=== PATIENT | male | born 1960 | race Asian ===

== ENCOUNTER 2025-01-12 12:11 | Inpatient (IN) | payer MEDICAID, OTHER ==
[~2025-01-12] VITALS: Ht 162.6 cm; Wt 64.2 kg
[~2025-01-12 12:11] MED LIST: ENAL1TAB42; METF-370
--- NOTE | 2025-01-12 13:14 | ED.PDOC ---
History of Present Illness HPI Comments 64 year old male with PMHx DM, HTN, HLD, CKF presents to the ED with a chief complaint of abnormal labs onset today. Patient states he just moved from [place], began dialysis on 10/28/24, last dialysis was 2 days ago, has dialysis Sunday, Sunday, Sunday. Patient has no PCP, needs to set up dialysis. Has no further complaints. Denies fever, chills, nausea, vomiting, diarrhea, abdominal pain, chest pain, shortness of breath, numbness/tingling, headache, dysuria, hematuria. No other symptoms or modifying factors present at this time. Chief Complaint: Abnormal LAB's Time Seen by MD: 13:05 Primary Care Provider: NONE Reviewed Notes: Nurses Notes, Medications, Allergies Allergies: Coded Allergies: NO KNOWN ALLERGIES (Unverified , 01/18/11) Home Meds Reported Medications Rosuvastatin Calcium (Rosuvastatin Calcium) 5 Mg Tab, 5 MG PO DAILY, TAB 01/12/25 Calcium Acetate (Phosphate Bin (Calcium Acetate) 667 Mg Cap, 667 MG PO TIDWM, CAP WITH MEALS 01/12/25 Ferrous Sulfate (Ferrous Sulfate) 325 Mg Tab, 325 MG PO BID, TAB 01/12/25 Calcitriol (Calcitriol) 0.25 Mcg Cap, 1 CAP PO DAILY, #30 CAP 5 Refills 01/12/25 Allopurinol (Allopurinol) 100 Mg Tab, 100 MG PO DAILY, TAB 01/12/25 Furosemide (Furosemide) 40 Mg Tab, 1 TAB PO DAILY, #30 TAB 5 Refills 01/12/25 Metformin Hydrochloride (Metformin Hcl) 500 Mg Tab, BID 01/18/11 Enalapril Maleate (Enalapril Maleate) 2.5 Mg Tab, DAILY 01/18/11 Information Source: Patient, Relative Mode of Arrival: Ambulatory Severity: Moderate Timing: Hours Duration: Since onset Prehospital treatment: None Past Medical History PAST MEDICAL HISTORY: CKF, DM, High Lipids, HTN Surgical History: Denies all surgeries Family History Family History: Unknown Social History Smoker: Non-Smoker Alcohol: Denies ETOH Use Drugs: Denies Drug Use Lives In: Home Constitutional: denies: chills, diaphoresis, fatigue, fever, malaise, sweats, weakness, others EENTM: denies: blurred vision, double vision, ear bleeding, ear discharge, ear drainage, ear pain, ear ringing, eye pain, eye redness, hearing loss, mouth pain, mouth swelling, nasal discharge, nose bleeding, nose congestion, nose pain, photophobia, tearing, throat pain, throat swelling, voice changes, others Respiratory: denies: cough, hemoptysis, orthopnea, SOB at rest, shortness of breath, SOB with excertion, stridor, wheezing, others Cardiovascular: denies: chest pain, dizzy spells, diaphoresis, Dyspnea on exertion, edema, irregular heart beat, left arm pain, lightheadedness, palpitations, PND, syncope, others Gastrointestinal: denies: abdomen distended, abdominal pain, blood streaked bowels, constipated, diarrhea, dysphagia, difficulty swallowing, hematemesis, melena, nausea, poor appetite, poor fluid intake, rectal bleeding, rectal pain, vomiting, others Genitourinary: denies: burning, dysuria, flank pain, frequency, hematuria, incontinence, penile discharge, penile sore, pain, testicle pain, testicle swelling, urgency, others Neurological: denies: dizziness, fainting, headache, left sided numbness, left sided weakness, numbness, paresthesia, pre-existing deficit, right sided numbness, right sided weakness, seizure, speech problems, tingling, tremors, weakness, others Musculoskeletal: denies: back pain, gout, joint pain, joint swelling, muscle pain, muscle stiffness, neck pain, others Integumetry: denies: bruises, change in color, change in hair/nails, dryness, laceration, lesions, lumps, rash, wounds, others Allergic/Immunocompromised: denies: Difficulty Healing, Frequent Infections, Hives, Itching, others Hematologic/Lymphatic: denies: anemia, blood clots, easy bleeding, easy bruising, swollen glands, others Endocrine: denies: excessive hunger, excessive sweating, excessive thirst, excessive urination, flushing, intolerance to cold, intolerance to heat, unexp lained weight gain, unexplained weight loss, others Psychiatric: denies: anxiety, bipolar disorder, depression, hopeless, panic disorder, schizophrenia, sleepless, suicidal, others All Other Systems: Reviewed and Negative Physical Exam General Appearance: Normal HEENT: Normal ENT Inspection, Pharynx Normal, TMs Normal Neck: Full Range of Motion, Non-Tender, Normal, Normal Inspection Respiratory: Chest Non-Tender, Lungs Clear, No Accessory Muscle Use, No Respiratory Distress, Normal Breath Sounds Cardiovascular: No Edema, No JVD, No Murmur, No Gallop, Normal Peripheral Pulses, Regular Rate/Rhythm Breast Exam: Deferred Gastrointestinal: No Organomegaly, Non Tender, No Pulsatile Mass, Normal Bowel Sounds, Soft Genitalia: Deferred Pelvic: Deferred Rectal: Deferred Extremities: No calf tenderness, Normal capillary refill, Normal inspection, Normal range of motion, Non-tender, No pedal edema Musculoskeletal : Apperance: Normal Neurologic: Alert, 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 Was a procedure done?: No Differential Dx Considerations may include: Hyperkalemia, metabolic acidosis, volume overload, uremia, chronic renal failure. X-Ray, Labs, Meds, VS Vital Signs Date Time Temp Pulse Resp B/P (MAP) Pulse Ox O2 Delivery O2 Flow Rate FiO2 01/12/25 14:07 97.9 82 17 155/94 (114) 97 97.9 01/12/25 12:15 98.7 92 17 162/94 97 98.7 Lab Test 01/12/25 13:05 Range/Units White Blood Count 6.1 4.4-10.8 10^3/uL Red Blood Count 4.09 L 4.5-5.90 10^6/uL Hemoglobin 13.1 L 13.5-17.5 g/dL Hematocrit 38.6 L 41.0-53.0 % Mean Corpuscular Volume 94.4 80.0-100.0 fL Mean Corpuscular Hemoglobin 32.0 28.0-32.0 pg Mean Corpuscular Hemoglobin Concent 33.9 32.0-36.0 g/dL Red Cell Distribution Width 14.2 11.8-14.3 % Platelet Count 194 140-450 10^3/uL Mean Platelet Volume 7.5 6.9-10.8 fL Neutrophils (%) (Auto) 72.9 37.0-80.0 % Lymphocytes (%) (Auto) 15.2 10.0-50.0 % Monocytes (%) (Auto) 7.5 0.0-12.0 % Eosinophils (%) (Auto) 3.7 0.0-7.0 % Basophils (%) (Auto) 0.7 0.0-2.0 % Neutrophils # (Auto) 4.5 1.6-8.6 10 ^3/uL Lymphocytes # (Auto) 0.9 0.4-5.4 10 ^3/uL Monocytes # (Auto) 0.5 0-1.3 10 ^3/uL Eosinophils # (Auto) 0.2 0-0.8 10 ^3/uL Basophils # (Auto) 0 0-0.2 10 ^3/uL Nucleated Red Blood Cells 0.0 % Sodium Level 142 136-145 mmol/L Potassium Level 4.5 3.5-5.1 mmol/L Chloride Level 104 98-107 mmol/L Carbon Dioxide Level 23 20-31 mmol/L Anion Gap 15 5-15 Blood Urea Nitrogen 79 H 9-23 mg/dL Creatinine 10.60 *H 0.700-1.30 mg/dL Glomerular Filtration Rate Calc 5 >90 mL/min BUN/Creatinine Ratio 7.5 L 10.0-20.0 Serum Glucose 130 H 74-106 mg/dL Calcium Level 9.7 8.7-10.4 mg/dL Time of 1ST Reevaluation: 13:35 Reevaluation 1ST: Unchanged Patient Education/Counseling: Diagnosis, Treatment, Prognosis Family Education/Counseling: Diagnosis, Treatment, Prognosis Comments This is a patient with chronic renal failure on hemodialysis. [facility] just [facility] and is looking for dialysis. He had gotten dialysis on Sunday. Current lab does not show any evidence of needing emergency dialysis. Patient presents in no distress. I will consult hospitalist to see dictation needs to be admitted for arrangement of nephrologists or outpatient arrangements can be made. Additional Information The following tests were ordered, and results were reviewed by me: BMP, CBC Additional Information was gathered from interviewing the following independent historians: relative I discussed treatment and results with medical personnel and: patient and relative Comprehensive systems review obtained and negative except for what is stated in the HPI. SEPSIS Sepsis Screen Date sepsis recognized/suspect: Jan 12, 2025 Time Sepsis recognized/suspect: 8 Recent Procedure: No On Antibiotic Therapy: No Respiratory Rate >20: No Heart Rate >90: No Temp<36 C (96.8 F) or >38.3 C: No SBP <90 or MAP <65 mmHG: No New Acute Mental Status Change: No Is the patient on CPAP, BIPAP,: No Vital Signs Date Time Temp Pulse Resp B/P (MAP) Pulse Ox O2 Delivery O2 Flow Rate FiO2 01/12/25 14:07 97.9 82 17 155/94 (114) 97 97.9 01/12/25 12:15 98.7 92 17 162/94 97 98.7 Laboratory Tests Test 01/12/25 13:05 White Blood Count 6.1 10^3/uL (4.4-10.8) Departure 1 Departure Impression: Primary Impression: ESRD (end stage renal disease) Additional Impression: Chronic kidney disease Disposition: ADMITTED INPATIENT Admit to: Med Surg Condition: Stable Discharged With: Self, Relative Critical Care Note Critical Care Time?: No Stability Stability form required: No Heart Score Heart Score: Heart Score Response (Comments) Value History N/A 0 EKG N/A 0 Age N/A 0 Risk Factors N/A 0 Troponin N/A 0 Total 0 I personally scribed for ANLAY SALAZAR MD ([email or web address]) on 01/12/25 at 13:14. Electronically submitted by Lillie Barnard ([email or web address]). ANALY SALAZAR MD Jan 12, 2025 13:14
[2025-01-12 13:18] LABS: Hematocrit 38.6 % (41.0-53.0); Hemoglobin 13.1 g/dL (13.5-17.5); Mean Corpuscular Hemoglobin 32.0 pg (28.0-32.0); Mean Corpuscular Volume 94.4 fL (80.0-100.0); Nucleated Red Blood Cells % 0.0 %
[2025-01-12 13:24] LABS: Chloride 104 mmol/L (98-107); Potassium 4.5 mmol/L (3.5-5.1); Sodium 142 mmol/L (136-145)
[2025-01-12 13:25] LABS: Anion Gap 15 (5-15); Calcium 9.7 mg/dL (8.7-10.4); Carbon Dioxide 23 mmol/L (20-31)
[2025-01-12 13:30] LABS: BUN/Creatinine Ratio 7.5 (10.0-20.0)
[2025-01-12 13:31] LABS: Blood Urea Nitrogen 79 mg/dL (9-23); Glucose 130 mg/dL (74-106)
[2025-01-12] MEDS ORDERED: DOCUSATE SOD 100 MG CAP PO PRN (16:15)
[2025-01-12] MEDS ORDERED: HYDROcodone-ACET 5/325MG TAB PO PRN (16:15)
[2025-01-12] MEDS ORDERED: ACETAMINOPHEN 325 MG TAB PO PRN (16:15)
[2025-01-12] MEDS ORDERED: ONDANSETRON HCL 4 MG/2 ML VIAL IV PRN (16:15)
[2025-01-12] MEDS ORDERED: DEXTROSE (50%) 50ML SYRG IV PRN (16:30)
[2025-01-12] MEDS ORDERED: CALC0.25 PO (16:48)
[2025-01-12] MEDS ORDERED: CALC667C PO (16:48)
[2025-01-12] MEDS ORDERED: FURO40TA4 PO (16:48)
[2025-01-12] MEDS ORDERED: FER325T PO (16:48)
[2025-01-12] MEDS ORDERED: ROSU5TAB24 PO (16:48)
[2025-01-12] MEDS ORDERED: ALLO100T PO (16:48)
--- NOTE | 2025-01-12 16:57 | DVHHP2 ---
History of Present Illness Reason for Visit: Needs hemodialysis History of Present Illness Inder Noyola is a 64-year-old male with past medical history of ESRD on HD, hard of hearing, hypertension, GOUT, and diabetes, who came to the hospital due to needing hemodialysis. Patient just arrived in the [place] today [place]. He states he has been on hemodialysis since October of 2024. He tried arranging chair time prior to arrival but there was a languae barrier. So when he showed up today he was told to go to the ER. His last HD was Sunday01/09/2025. 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 Cardiovascular: HTN, hyperipidemia Rheumatologic: Gout Renal/: Chronic renal failure (on HD) Endocrine: Diabetes Smoke: No ALCOHOL: none Drugs: None Lives: with Family Domestic Violence: Neg Review of Systems Constitutional: No: Fever, Chills, Sweats, Weakness, Malaise, Other Eyes: No: Pain, Vision change, Conjunctivae inflammation, Eyelid inflammation, Other, Redness ENT: No: Ear pain, Ear discharge, Nose pain, Nose discharge, Nose congestion, Mouth pain, Mouth swelling, Throat pain, Throat swelling, Other Respiratory: No: Cough, Dry, Shortness of breath, SOB with excertion, Wheezing, Hemoptysis, Pleuritic Pain, Sputum, Wheezing, Other Cardiovascular: No: Chest Pain, Palpitations, Orthopnea, Paroxysmal Noc. Dyspnea, Edema, Lt Headedness, Other Gastrointestinal: No: Nausea, Vomiting, Abdominal Pain, Diarrhea, Constipation, Melena, Hematochezia, Other Genitourinary: No Dysuria, No Frequency, No Incontinence, No Hematuria, No Retention, No Other Musculoskeletal: No: other, neck pain, shoulder pain, arm pain, back pain, hand pain, leg pain, foot pain Skin: No: Rash, Lesions, Jaundice, Bruising, Other Neurological: No: Weakness, Numbness, Incoordination, Change in speech, Confusion, Seizures, Other Other Needs hemodialysis Allergies: Coded Allergies: NO KNOWN ALLERGIES (Unverified , 01/18/11) Exam Vital Signs Vital Signs Date Time Temp Pulse Resp B/P (MAP) Pulse Ox O2 Delivery O2 Flow Rate FiO2 01/12/25 14:07 97.9 82 17 155/94 (114) 97 97.9 General Appearance: Alert, Oriented X3, Cooperative, No acute distress HEENT: Atraumatic, PERRLA, Mucous membr. moist/pink Respiratory: Clear to auscultation, Normal air movement Cardiovascular: Regular rate, Normal S1, Normal S2, No murmurs Abdominal: Normal bowel sounds, Soft, No tenderness, No hepatospenomegaly Extremities: No clubbing, No cyanosis, No edema, Normal pulses, Other (left arm HD fistula) Skin: No rashes, No breakdown, No significant lesion Neuro: Normal gait, Normal speech, Strength at 5/5 X4 ext Psych/Mental Status: Mental status NL, Mood NL Labs/Xrays Labs Test 01/12/25 13:05 Range/Units White Blood Count 6.1 4.4-10.8 10^3/uL Red Blood Count 4.09 L 4.5-5.90 10^6/uL Hemoglobin 13.1 L 13.5-17.5 g/dL Hematocrit 38.6 L 41.0-53.0 % Mean Corpuscular Volume 94.4 80.0-100.0 fL Mean Corpuscular Hemoglobin 32.0 28.0-32.0 pg Mean Corpuscular Hemoglobin Concent 33.9 32.0-36.0 g/dL Red Cell Distribution Width 14.2 11.8-14.3 % Platelet Count 194 140-450 10^3/uL Mean Platelet Volume 7.5 6.9-10.8 fL Neutrophils (%) (Auto) 72.9 37.0-80.0 % Lymphocytes (%) (Auto) 15.2 10.0-50.0 % Monocytes (%) (Auto) 7.5 0.0-12.0 % Eosinophils (%) (Auto) 3.7 0.0-7.0 % Basophils (%) (Auto) 0.7 0.0-2.0 % Neutrophils # (Auto) 4.5 1.6-8.6 10 ^3/uL Lymphocytes # (Auto) 0.9 0.4-5.4 10 ^3/uL Monocytes # (Auto) 0.5 0-1.3 10 ^3/uL Eosinophils # (Auto) 0.2 0-0.8 10 ^3/uL Basophils # (Auto) 0 0-0.2 10 ^3/uL Nucleated Red Blood Cells 0.0 % Sodium Level 142 136-145 mmol/L Potassium Level 4.5 3.5-5.1 mmol/L Chloride Level 104 98-107 mmol/L Carbon Dioxide Level 23 20-31 mmol/L Anion Gap 15 5-15 Blood Urea Nitrogen 79 H 9-23 mg/dL Creatinine 10.60 *H 0.700-1.30 mg/dL Glomerular Filtration Rate Calc 5 >90 mL/min BUN/Creatinine Ratio 7.5 L 10.0-20.0 Serum Glucose 130 H 74-106 mg/dL Calcium Level 9.7 8.7-10.4 mg/dL SEPSIS Sepsis Screen Date sepsis recognized/suspect: Jan 12, 2025 Time Sepsis recognized/suspect: 1217 Recent Procedure: No On Antibiotic Therapy: No Respiratory Rate >20: No Heart Rate >90: No Temp<36 C (96.8 F) or >38.3 C: No SBP <90 or MAP <65 mmHG: No New Acute Mental Status Change: No Is the patient on CPAP, BIPAP,: No Physician Orders Admit (01/12/25 16:12) Code Status (01/12/25 16:12) Renal Standard(2gna,3gk,Lopho) (01/12/25 Dinner) Sodium Chloride Lock (Saline Lock Ns) (01/12/25 22:00) Hydrocodone-Acet 5/325mg Tab (Mona 32 (01/12/25 16:15) Ondansetron Hcl (Zofran) (01/12/25 16:15) Docusate Sodium Capsule (Colace Capsule) (01/12/25 16:15) Complete Blood Count (01/13/25 04:00) Comprehensive Metabolic Panel (01/13/25 04:00) Condition: Serious (01/12/25 16:12) Acetaminophen Tablet (Tylenol Tablet) (01/12/25 16:15) *[facility] (01/12/25 16:12) Vital Signs Date Time Temp Pulse Resp B/P (MAP) Pulse Ox O2 Delivery O2 Flow Rate FiO2 01/12/25 14:07 97.9 82 17 155/94 (114) 97 97.9 01/12/25 12:15 98.7 92 17 162/94 97 98.7 Laboratory Tests Test 01/12/25 13:05 White Blood Count 6.1 10^3/uL (4.4-10.8) Assessment/Plan Assessment/Plan Assessment: ESRD needing dialysis, Diabetes, Hypertension, Hyperlipidemia, Plan: Admit to Med-Surg, Nephrology consult, Chest X-ray, Daily weight, Fluid restriction, Will require a social service consult to help arrange chair time, Accu checks Q AC&HS with sliding scale, Home medications reconciled, Plan discussed with: Patient, Spouse My Orders Orders - GINA MONTAGUE Procedure Category Date Status Time Admit ADMIT 01/12/25 Transmitted 16:12 Code Status CODE 01/12/25 Transmitted 16:12 Renal DIET 01/12/25 Transmitted Standard(2gna,3gk,Lopho) Dinner Sodium Chloride Lock PHA 01/12/25 Transmitted (Saline Lock Ns) 22:00 Hydrocodone-Acet PHA 01/12/25 Transmitted 5/325mg Tab (Mona 16:15 Ondansetron Hcl PHA 01/12/25 Transmitted (Zofran) 16:15 Docusate Sodium PHA 01/12/25 Transmitted Capsule (Colace 16:15 Complete Blood Count LAB 01/13/25 Verified 04:00 Comprehensive LAB 01/13/25 Verified Metabolic Panel 04:00 Condition: Serious EDWIN 01/12/25 Transmitted 16:12 Acetaminophen Tablet PHA 01/12/25 Transmitted (Tylenol Tablet) 16:15 *Dr. [facility] CONS 01/12/25 Transmitted -[place] 16:12 Date of Service: Jan 12, 2025 Billing Provider: GINA MONTAGUE Common Visit Codes: 66728-GHEIAYP INP/OBS CARE (MOD) GINA MONTAGUE Jan 12, 2025 16:57
[2025-01-12] MEDS: ACCU-CHEK COMFORT CURVE STRIP VI SCH (17:00)
[2025-01-12] MEDS: InsuLIN REG 1unit/0.01ml Soln (100units/ml) SC SCH ×2 (17:00→22:00)
[2025-01-12 17:30] VITALS: PULSE 84; RESP 16; O2SAT 100
[2025-01-12] MEDS: CALCIUM ACETATE 667 MG CAP PO SCH (18:28)
--- NOTE | 2025-01-12 18:49 | DVH ---
CHEST RADIOGRAPH Indication: short of breath Technique: Single frontal view of the chest was obtained Comparison: None FINDINGS: Lines and Tubes: None Lungs: No focal consolidation. Pleura: No effusion. No pneumothorax. Cardiomediastinal contours: Unremarkable Bones: No acute osseous abnormality. IMPRESSION: 1. No acute cardiopulmonary disease.
[2025-01-12 20:59] LABS: Urine Protein, UAD 2+ (Negative)
[2025-01-12 22:10] VITALS: BP 181/91; PULSE 87; RESP 18; TEMP 98.2; O2SAT 95
[2025-01-13] VITALS (7 sets, daily range): BP systolic 100–155; BP diastolic 53–83; PULSE 75–89; RESP 17–20; TEMP 97.3–97.7; O2SAT 98–100
[2025-01-13] MEDS: FERROUS SULFATE 325mg EC TAB PO SCH (00:14)
[2025-01-13 06:08] LABS: Hematocrit 39.6 % (41.0-53.0); Hemoglobin 13.4 g/dL (13.5-17.5); Mean Corpuscular Hemoglobin 31.8 pg (28.0-32.0); Mean Corpuscular Volume 93.7 fL (80.0-100.0); Nucleated Red Blood Cells % 0.1 %
[2025-01-13 06:29] LABS: Alanine Aminotransferase 11 U/L (7-40); Albumin 3.6 g/dL (3.2-4.8); Anion Gap 17 (5-15); BUN/Creatinine Ratio 8.3 (10.0-20.0); Calcium 9.5 mg/dL (8.7-10.4); Carbon Dioxide 20 mmol/L (20-31); Chloride 105 mmol/L (98-107); Glucose 80 mg/dL (74-106); Potassium 4.5 mmol/L (3.5-5.1); Sodium 142 mmol/L (136-145); Total Protein 6.5 g/dL (5.7-8.2)
[2025-01-13 06:30] LABS: Bilirubin, Total 0.4 mg/dL (0.2-1.0)
[2025-01-13 06:44] LABS: Alkaline Phosphatase 118 U/L (46-116)
[2025-01-13 06:47] LABS: Blood Urea Nitrogen 86 mg/dL (9-23)
[2025-01-13] MEDS: FUROSEMIDE 40 MG TAB PO SCH (10:00)
[2025-01-13] MEDS: ENALAPRIL MALEATE 2.5 MG TAB PO SCH (10:00)
[2025-01-13 10:35] LABS: Uric Acid 6.9 mg/dL (3.7-9.2)
[2025-01-13] MEDS: CALCITRIOL 0.25 MCG CAP PO SCH (10:40)
[2025-01-13] MEDS: ALLOPURINOL 100 MG TAB PO SCH (10:40)
--- NOTE | 2025-01-13 13:51 | DVHCONRES ---
Date Seen: Jan 13, 2025 Resident Creating Document: ZACHARY SOL RESIDENT Referring Physician Dr Zuniga Reason for Consultation ESRD on HD History of Present Illness Inder Noyola is a 64-year-old male with past medical history of ESRD on HD, hard of hearing, hypertension, GOUT, and diabetes, who came to the hospital due to needing hemodialysis. Patient just arrived [place] the [place] today from [facility]. He states he has been on hemodialysis since October of 2024. He tried arranging chair time prior to arrival but there was a languae barrier. So when he showed up today he was told to go to the ER. His last HD was Sunday01/09/2025. He has not established a primary care provider, curator of education, or dialysis center yet. Nephrology was consulted for hemodialysis PMH: HTN, hyperlipidemia, gout, ESRD on HD, type 2 DM PSH: Denies Family history: Nonsignificant Personal history: Lives at home. Denies smoking, alcohol or drug abuse Allergies: No known allergies Patient seen and examined at the bedside. Patient is alert and able to answer all questions. Patient denied any symptoms at this time. Continuously monitoring lab. Allergies: Coded Allergies: NO KNOWN ALLERGIES (Unverified , 01/18/11) Home Meds Reported Medications Rosuvastatin Calcium (Rosuvastatin Calcium) 5 Mg Tab, 5 MG PO DAILY, TAB 01/12/25 Calcium Acetate (Phosphate Bin (Calcium Acetate) 667 Mg Cap, 667 MG PO TIDWM, CAP WITH MEALS 01/12/25 Ferrous Sulfate (Ferrous Sulfate) 325 Mg Tab, 325 MG PO BID, TAB 01/12/25 Calcitriol (Calcitriol) 0.25 Mcg Cap, 1 CAP PO DAILY, #30 CAP 5 Refills 01/12/25 Allopurinol (Allopurinol) 100 Mg Tab, 100 MG PO DAILY, TAB 01/12/25 Furosemide (Furosemide) 40 Mg Tab, 1 TAB PO DAILY, #30 TAB 5 Refills 01/12/25 Metformin Hydrochloride (Metformin Hcl) 500 Mg Tab, BID 01/18/11 Enalapril Maleate (Enalapril Maleate) 2.5 Mg Tab, DAILY 01/18/11 Current Medications Current Medications Medications (Trade) Dose Ordered Sig/Charley Route PRN Reason Start Time Stop Time Status Last Admin Sodium Chloride (Saline Lock Ns) 10 ml Q8HR IV 01/12/25 22:00 Acetaminophen/ Hydrocodone Bitart (Corinne 5/325MG Tab) 1 tab Q4HP PRN PO MODERATE PAIN (4-6 PAIN SCALE) 01/12/25 16:15 Ondansetron HCl (Zofran) 4 mg Q4HP PRN IV NAUSEA / VOMITING 01/12/25 16:15 Docusate Sodium (Colace Capsule) 100 mg BIDPRN PRN PO FOR CONSTIPATION 01/12/25 16:15 Acetaminophen (Tylenol Tablet) 650 mg Q6HP PRN PO PAIN SCALE 1-3 OR TEMP>100.4 01/12/25 16:15 Diagnostic Test (Pha) (Accu-Chek Comfort Curve T) 1 strip ACHS 01/12/25 17:00 01/13/25 12:18 Insulin Human Regular (InsuLIN R) HS SC 01/12/25 22:00 Insulin Human Regular (InsuLIN R) AC SC 01/12/25 17:00 Dextrose 50 ml UD PRN IV Blood Sugar LESS THAN 60 01/12/25 16:30 Allopurinol (Zyloprim Tablet) 100 mg DAILY PO 01/13/25 10:00 01/13/25 10:40 Calcium Acetate (Phoslo Capsule) 667 mg TIDWM PO 01/12/25 18:00 01/13/25 12:29 Ferrous Sulfate 325 mg BID PO 01/12/25 22:00 01/13/25 10:40 Furosemide (Lasix Tablet) 40 mg DAILY PO 01/13/25 10:00 Atorvastatin Calcium (Lipitor) 10 mg HS PO 01/13/25 22:00 Calcitriol (Rocaltrol Capsule) 0.25 mcg DAILY PO 01/13/25 10:00 01/13/25 10:40 Enalapril Maleate (Vasotec Tablet) 2.5 mg DAILY PO 01/13/25 10:00 Vital Signs Vital Signs Date Time Temp Pulse Resp B/P (MAP) Pulse Ox O2 Delivery O2 Flow Rate FiO2 01/13/25 13:00 97.4 81 20 100/53 (69) 98 97.4 01/13/25 08:00 Room Air* 0 21 Physical Exam General Appearance: Alert, Oriented X3, Cooperative, No acute distress HEENT: Atraumatic, PERRLA, Mucous membr. moist/pink Respiratory: Clear to auscultation, Normal air movement Cardiovascular: Regular rate, Normal S1, Normal S2, No murmurs Abdominal: Normal bowel sounds, Soft, No tenderness, No hepatospenomegaly Extremities: No clubbing, No cyanosis, No edema, Normal pulses, Other (left arm HD fistula) Skin: No rashes, No breakdown, No significant lesion Neuro: Normal gait, Normal speech, Strength at 5/5 X4 ext Psych/Mental Status: Mental status NL, Mood NL Labs/Diagnostic Data Labs Test 01/13/25 12:17 01/13/25 05:40 01/12/25 20:32 Range/Units POC Glucose 124 H 70-106 mg/dl White Blood Count 6.7 4.4-10.8 10^3/uL Red Blood Count 4.22 L 4.5-5.90 10^6/uL Hemoglobin 13.4 L 13.5-17.5 g/dL Hematocrit 39.6 L 41.0-53.0 % Mean Corpuscular Volume 93.7 80.0-100.0 fL Mean Corpuscular Hemoglobin 31.8 28.0-32.0 pg Mean Corpuscular Hemoglobin Concent 33.9 32.0-36.0 g/dL Red Cell Distribution Width 14.4 H 11.8-14.3 % Platelet Count 180 140-450 10^3/uL Mean Platelet Volume 7.8 6.9-10.8 fL Neutrophils (%) (Auto) 72.8 37.0-80.0 % Lymphocytes (%) (Auto) 13.6 10.0-50.0 % Monocytes (%) (Auto) 9.2 0.0-12.0 % Eosinophils (%) (Auto) 3.7 0.0-7.0 % Basophils (%) (Auto) 0.7 0.0-2.0 % Neutrophils # (Auto) 4.9 1.6-8.6 10 ^3/uL Lymphocytes # (Auto) 0.9 0.4-5.4 10 ^3/uL Monocytes # (Auto) 0.6 0-1.3 10 ^3/uL Eosinophils # (Auto) 0.2 0-0.8 10 ^3/uL Basophils # (Auto) 0 0-0.2 10 ^3/uL Nucleated Red Blood Cells 0.1 % Sodium Level 142 136-145 mmol/L Potassium Level 4.5 3.5-5.1 mmol/L Chloride Level 105 98-107 mmol/L Carbon Dioxide Level 20 20-31 mmol/L Anion Gap 17 H 5-15 Blood Urea Nitrogen 86 *H 9-23 mg/dL Creatinine 10.36 *H 0.700-1.30 mg/dL Glomerular Filtration Rate Calc 5 >90 mL/min BUN/Creatinine Ratio 8.3 L 10.0-20.0 Serum Glucose 80 74-106 mg/dL Uric Acid 6.9 3.7-9.2 mg/dL Calcium Level 9.5 8.7-10.4 mg/dL Phosphorus Level 6.4 H 2.4-5.1 mg/dL Total Bilirubin 0.4 0.2-1.0 mg/dL Aspartate Amino Transferase (AST) 33 13-40 U/L Alanine Aminotransferase (ALT) 11 7-40 U/L Alkaline Phosphatase 118 H 46-116 U/L B-Type Natriuretic Peptide 434.99 0-100 pg/mL Total Protein 6.5 5.7-8.2 g/dL Albumin 3.6 3.2-4.8 g/dL Vitamin D 25-Hydroxy 29.3 L 30.0-100 ng/mL Parathyroid Hormone (Intact) 64.6 18.4-80.1 pg/mL Urine Color Light-yellow Yellow Urine Clarity Clear Clear Urine pH 6.5 5.0-9.0 Urine Specific [place] 1.012 1.001-1.035 Urine Protein 2+ H Negative Urine Ketones Negative Negative Urine Blood 2+ H Negative /uL Urine Nitrite Negative Negative Urine Bilirubin Negative Negative Urine Urobilinogen Normal Negative mg/dL Urine Leukocyte Esterase Negative Negative /uL Urine RBC 6 0 - 3 /hpf Urine Microscopic WBC 2 0-3 /HPF Urine Squamous Epithelial Cells None seen <5 /hpf Urine Bacteria None seen None Seen /hpf Urine Glucose 3+ H Normal mg/dL Assessment ESRD on hemodialysis Type 2 DM HTN HLD Hyperphosphatemia Vitamin-D deficiency Plan/recommendations Continue with UF to 3 L as tolerated Blood pressure control Urine studies Monitor lab Check hep B surface antigen Assess fluid status daily Blood pressure management Avoid nephrotoxic agents Social service for outpatient hemodialysis chair time at [facility] dialysis Rest of management as per primary team Patient seen and examined by myself today on rounds with the medicine resident I agree with his assessment and plan Case discussed with Plan discussed with: Patient SWETA,KHAKARL CABAN Jan 13, 2025 13:51 HERRERA DAVEY MD Jan 13, 2025 14:19
--- NOTE | 2025-01-13 15:23 | DVHPN2 ---
Changes from previous H/P or p: No Changes Eyes: No Pain, No Vision change, No Conjunctivae inflammation, No Eyelid inflammation, No Other, No Redness ENT: No Ear pain, No Ear discharge, No Nose pain, No Nose discharge, No Nose congestion, No Mouth pain, No Mouth swelling, No Throat pain, No Throat swelling, No Other Cardiovascular: No Chest Pain, No Palpitations, No Orthopnea, No Paroxysmal Noc. Dyspnea, No Edema, No Lt Headedness, No Other Respiratory: No Cough, No Dry, No Shortness of breath, No SOB with excertion, No Wheezing, No Hemoptysis, No Pleuritic Pain, No Sputum, No Other Gastrointestinal: No Nausea, No Vomiting, No Abdominal Pain, No Diarrhea, No Constipation, No Melena, No Hematochezia, No Other Genitourinary: No Dysuria, No Frequency, No Incontinence, No Hematuria, No Retention, No Other Musculoskeletal: No other, No neck pain, No shoulder pain, No arm pain, No back pain, No hand pain, No leg pain, No foot pain Skin: No Rash, No Lesions, No Jaundice, No Bruising, No Other Objective Vitals Vital Signs Date Time Temp Pulse Resp B/P (MAP) Pulse Ox O2 Delivery O2 Flow Rate FiO2 01/13/25 13:00 97.4 81 20 100/53 (69) 98 97.4 01/13/25 08:00 Room Air* 0 21 Intake/Output Intake and Output 01/13/25 07:00 Intake Total 0 ml Balance 0 ml Intake Oral 0 ml # Voids 2 Medications Current Medications Medications Dose Ordered Sig/Charley Route Start Time Stop Time Status Last Admin Dose Admin Sodium Chloride 10 ml Q8HR IV 01/12/25 22:00 Acetaminophen/ Hydrocodone Bitart 1 tab Q4HP PRN PO 01/12/25 16:15 Ondansetron HCl 4 mg Q4HP PRN IV 01/12/25 16:15 Docusate Sodium 100 mg BIDPRN PRN PO 01/12/25 16:15 Acetaminophen 650 mg Q6HP PRN PO 01/12/25 16:15 Diagnostic Test (Pha) 1 strip ACHS 01/12/25 17:00 01/13/25 12:18 1 STRIP Insulin Human Regular HS SC 01/12/25 22:00 Insulin Human Regular AC SC 01/12/25 17:00 Dextrose 50 ml UD PRN IV 01/12/25 16:30 Allopurinol 100 mg DAILY PO 01/13/25 10:00 01/13/25 10:40 100 MG Calcium Acetate 667 mg TIDWM PO 01/12/25 18:00 01/13/25 12:29 667 MG Ferrous Sulfate 325 mg BID PO 01/12/25 22:00 01/13/25 10:40 325 MG Furosemide 40 mg DAILY PO 01/13/25 10:00 Atorvastatin Calcium 10 mg HS PO 01/13/25 22:00 Calcitriol 0.25 mcg DAILY PO 01/13/25 10:00 01/13/25 10:40 0.25 MCG Enalapril Maleate 2.5 mg DAILY PO 01/13/25 10:00 Laboratory Results Laboratory Tests 01/13/25 05:40 Chemistry Test 01/13/25 05:40 Albumin 3.6 g/dL (3.2-4.8) Calcium Level 9.5 mg/dL (8.7-10.4) Phosphorus Level 6.4 mg/dL (2.4-5.1) H Total Protein 6.5 g/dL (5.7-8.2) Cardiac Markers Test 01/13/25 05:40 B-Type Natriuretic Peptide 434.99 pg/mL (0-100) LFT Test 01/13/25 05:40 Alanine Aminotransferase (ALT) 11 U/L (7-40) Alkaline Phosphatase 118 U/L (46-116) H Aspartate Amino Transferase (AST) 33 U/L (13-40) Total Bilirubin 0.4 mg/dL (0.2-1.0) Urinalysis Test 01/12/25 20:32 Urine Color Light-yellow (Yellow) Urine Clarity Clear (Clear) Urine pH 6.5 (5.0-9.0) Urine Specific [place] 1.012 (1.001-1.035) Urine Protein 2+ (Negative) H Urine Ketones Negative (Negative) Urine Blood 2+ /uL (Negative) H Urine Nitrite Negative (Negative) Urine Bilirubin Negative (Negative) Urine Urobilinogen Normal mg/dL (Negative) Urine Leukocyte Esterase Negative /uL (Negative) Urine RBC 6 /hpf (0 - 3) Urine Microscopic WBC 2 /HPF (0-3) Urine Squamous Epithelial Cells None seen /hpf (<5) Urine Bacteria None seen /hpf (None Seen) Urine Glucose 3+ mg/dL (Normal) H Labs and/or images reviewed: Labs reviewed by me, Image(s) reviewed by me Assessment/Plan Assessment/Plan ESRD on hemodialysis requiring hemodialysis: Nephrology consult by appreciated Type 2 DM HTN HLD Hyperphosphatemia Vitamin-D deficiency Patient arrived in [place] from [place] only yesterday Social service consult placed for dialysis chair time Plan discussed with: Patient Date of Service: Jan 13, 2025 Billing Provider: ABDI NELSON MD Common Visit Codes: [id number] INP/OBS CARE(HIGH) ABDI NELSON MD Jan 13, 2025 15:23
[2025-01-13] MEDS: SODIUM CHLOR 0.9% PF (SALINE LOCK) 10ML VIAL/SYR IV SCH (15:52)
[2025-01-13] MEDS: SODIUM CHL 0.9% 1000 ML BAG XX ONE (15:53)
--- NOTE | 2025-01-13 21:04 | DVHSR ---
APPROVED REPORT EXAM: Two-dimensional and M-mode echocardiogram with Doppler and color Doppler. Blood Pressure: 100/53 mmHg INDICATION Heart Failure RISK FACTORS Height: 5'4", Weight: 136 DIMENSIONS LVDd 5.0 (3.8-5.7cm) LA (2D) 3.7 (1.9-4.0cm) Aortic Root 3.7 (2.0-3.7cm) LVDs 3.1 (2.5-4.0cm) LA (MM) (1.9-4.0cm) Aortic Cusp Exc 2.0 (1.5-2.0cm) EF (%) 68.0 (55-70%) Rt. Atrium 3.5 (1.9-4.0cm) Asc. Aorta 3.4 cm IVSd 1.2 (0.7-1.1cm) RV (D) 4.1 (1.8-2.4cm) PWd 0.9 (0.7-1.1cm) Mitral Valve Mitral Mitral Stenosis E wave 0.56m/s MV Mean GR. mmHg A wave 0.89m/s MV Peak GR. mmHg E/A ratio 0.6 2D MVA cm2 DECEL Time 277ms PRESS 1/2 Time ms Aortic Valve Aortic Valve Aortic Stenosis V1 1.04m/s AO Mean GR. 3mmHg V2 1.27m/s AO Peak GR. 6mmHg LVOT Diameter 2.4 (1.8-2.4cm) Doppler CORBIN 3.70cm2 Pulmonic Valve V2 0.86m/s Conclusion NORMAL LV EF AND IS 70% NORMAL VALVES NO EFFUSION NORMAL RV FUNCTION
[2025-01-13 21:46] LABS: Protein, Urine 165.3 mg/dL (1-14)
[2025-01-13 21:48] LABS: Protein, Urine 170.2 mg/dL (1-14)
[2025-01-13] MEDS: ATORVASTATIN 20 MG TAB PO SCH (21:59)
[2025-01-14] VITALS (8 sets, daily range): BP systolic 82–159; BP diastolic 52–87; PULSE 75–93; RESP 16–20; TEMP 97.4–98.2; O2SAT 94–100
--- NOTE | 2025-01-14 08:34 | DVHPN2 ---
Reviewed: Care Plan Changes from previous H/P or p: No Changes Eyes: No Pain, No Vision change, No Conjunctivae inflammation, No Eyelid inflammation, No Other, No Redness ENT: No Ear pain, No Ear discharge, No Nose pain, No Nose discharge, No Nose congestion, No Mouth pain, No Mouth swelling, No Throat pain, No Throat swelling, No Other Cardiovascular: No Chest Pain, No Palpitations, No Orthopnea, No Paroxysmal Noc. Dyspnea, No Edema, No Lt Headedness, No Other Respiratory: No Cough, No Dry, No Shortness of breath, No SOB with excertion, No Wheezing, No Hemoptysis, No Pleuritic Pain, No Sputum, No Other Gastrointestinal: No Nausea, No Vomiting, No Abdominal Pain, No Diarrhea, No Constipation, No Melena, No Hematochezia, No Other Genitourinary: No Dysuria, No Frequency, No Incontinence, No Hematuria, No Retention, No Other Musculoskeletal: No other, No neck pain, No shoulder pain, No arm pain, No back pain, No hand pain, No leg pain, No foot pain Skin: No Rash, No Lesions, No Jaundice, No Bruising, No Other Objective Vitals Vital Signs Date Time Temp Pulse Resp B/P (MAP) Pulse Ox O2 Delivery O2 Flow Rate FiO2 01/14/25 05:00 112/66 01/14/25 05:00 98.2 84 16 99 98.2 01/13/25 20:00 Room Air* 0 21 Intake/Output Intake and Output 01/14/25 07:00 Intake Total 1625 ml Balance 1625 ml Intake Oral 1625 ml # Voids 2 Medications Current Medications Medications Dose Ordered Sig/Charley Route Start Time Stop Time Status Last Admin Dose Admin Sodium Chloride 10 ml Q8HR IV 01/12/25 22:00 01/13/25 15:52 10 ML Acetaminophen/ Hydrocodone Bitart 1 tab Q4HP PRN PO 01/12/25 16:15 Ondansetron HCl 4 mg Q4HP PRN IV 01/12/25 16:15 Docusate Sodium 100 mg BIDPRN PRN PO 01/12/25 16:15 Acetaminophen 650 mg Q6HP PRN PO 01/12/25 16:15 Diagnostic Test (Pha) 1 strip ACHS 01/12/25 17:00 01/14/25 06:23 1 STRIP Insulin Human Regular HS SC 01/12/25 22:00 Insulin Human Regular AC SC 01/12/25 17:00 Dextrose 50 ml UD PRN IV 01/12/25 16:30 Allopurinol 100 mg DAILY PO 01/13/25 10:00 01/13/25 10:40 100 MG Calcium Acetate 667 mg TIDWM PO 01/12/25 18:00 01/13/25 18:51 667 MG Ferrous Sulfate 325 mg BID PO 01/12/25 22:00 01/13/25 21:50 325 MG Furosemide 40 mg DAILY PO 01/13/25 10:00 Atorvastatin Calcium 10 mg HS PO 01/13/25 22:00 01/13/25 21:59 10 MG Calcitriol 0.25 mcg DAILY PO 01/13/25 10:00 01/13/25 10:40 0.25 MCG Enalapril Maleate 2.5 mg DAILY PO 01/13/25 10:00 Clonidine HCl 0.1 mg Q6HP PRN PO 01/14/25 01:00 01/14/25 01:35 0.1 MG Laboratory Results Laboratory Tests 01/13/25 05:40 Urinalysis Test 01/12/25 20:26 01/12/25 20:32 Urine Osmolality 350 mOsm/kg Urine Creatinine 52.81 mg/dL (30.0-125.0) Urine Protein/Creatinine Ratio 3.13 Urine Sodium 76 mmol/L (40-220) Urine Total Protein 165.3 mg/dL (1-14) H Urine Color Light-yellow (Yellow) Urine Clarity Clear (Clear) Urine pH 6.5 (5.0-9.0) Urine Specific [place] 1.012 (1.001-1.035) Urine Protein 2+ (Negative) H Urine Ketones Negative (Negative) Urine Blood 2+ /uL (Negative) H Urine Nitrite Negative (Negative) Urine Bilirubin Negative (Negative) Urine Urobilinogen Normal mg/dL (Negative) Urine Leukocyte Esterase Negative /uL (Negative) Urine RBC 6 /hpf (0 - 3) Urine Microscopic WBC 2 /HPF (0-3) Urine Squamous Epithelial Cells None seen /hpf (<5) Urine Bacteria None seen /hpf (None Seen) Urine Glucose 3+ mg/dL (Normal) H Labs and/or images reviewed: Labs reviewed by me, Image(s) reviewed by me Assessment/Plan Assessment/Plan ESRD on hemodialysis requiring hemodialysis: Nephrology consult by appreciated Diabetes ruled out, blood sugars normal HTN HLD Hyperphosphatemia Vitamin-D deficiency Milton Batista at bedside Patient arrived in [place] from [facility] on 01-12-25 Social service consult placed for dialysis chair time Plan discussed with: Patient Date of Service: Jan 14, 2025 Billing Provider: ABDI NELSON MD Common Visit Codes: [id number] INP/OBS CARE(HIGH) ABDI NELSON MD Jan 14, 2025 08:34
[2025-01-14] MEDS ORDERED: hydrALAZINE HCL 20 MG/ML VL IV PRN (09:45)
[2025-01-14] MEDS: MIDODRINE HCL 10 MG TAB PO ONE (10:01)
[2025-01-14] MEDS: SEVELAMER 800 MG TAB PO SCH (11:43)
[2025-01-14 13:13] LABS: Hepatitis B Surface Antigen Negative (Negative)
[2025-01-14 13:31] LABS: Hepatitis C Antibody Negative (Negative)
--- NOTE | 2025-01-14 13:31 | DVHPN2 ---
Progress Note Date Seen: Jan 14, 2025 Resident Creating Document: ZACHARY SOL RESIDENT Medical Necessity Reason Pt with a Central, PICC or Fol: No Subjective Review of Systems Patient seen and examined at the bedside. Patient is alert and able to answer all questions. Patient denied any symptoms at this time. Continuously monitoring lab. Other Systems: Patient seen and examined by myself today on rounds with the medicine resident, I agree with the assessment and plan Objective vital signs Vital Sign Date Time Temp Pulse Resp B/P (MAP) Pulse Ox O2 Delivery O2 Flow Rate FiO2 01/14/25 09:38 83/56 01/14/25 08:31 97.6 93 16 99 97.6 01/14/25 08:00 Room Air* 0 21 Total Intake and Output 01/13/25 01/13/25 01/14/25 15:00 23:00 07:00 Intake Total 460 ml 965 ml 200 ml Balance 460 ml 965 ml 200 ml medications Current Medications Medications Dose Ordered Sig/Charley Route Start Time Stop Time Status Last Admin Dose Admin Sodium Chloride 10 ml Q8HR IV 01/12/25 22:00 01/13/25 15:52 10 ML Acetaminophen/ Hydrocodone Bitart 1 tab Q4HP PRN PO 01/12/25 16:15 Ondansetron HCl 4 mg Q4HP PRN IV 01/12/25 16:15 Docusate Sodium 100 mg BIDPRN PRN PO 01/12/25 16:15 Acetaminophen 650 mg Q6HP PRN PO 01/12/25 16:15 Allopurinol 100 mg DAILY PO 01/13/25 10:00 01/14/25 09:14 100 MG Ferrous Sulfate 325 mg BID PO 01/12/25 22:00 01/14/25 09:14 325 MG Furosemide 40 mg DAILY PO 01/13/25 10:00 Atorvastatin Calcium 10 mg HS PO 01/13/25 22:00 01/13/25 21:59 10 MG Sevelamer HCl 800 mg TIDWM PO 01/14/25 12:00 01/14/25 11:43 800 MG Hydralazine HCl 10 mg Q4HR PRN IV 01/14/25 09:45 Examination General Appearance: Alert, Oriented X3, Cooperative, No acute distress HEENT: Atraumatic, PERRLA, Mucous membr. moist/pink Respiratory: Clear to auscultation, Normal air movement Cardiovascular: Regular rate, Normal S1, Normal S2, No murmurs Abdominal: Normal bowel sounds, Soft, No tenderness, No hepatospenomegaly Extremities: No clubbing, No cyanosis, No edema, Normal pulses, Other (left arm HD fistula) Skin: No rashes, No breakdown, No significant lesion Neuro: Normal gait, Normal speech, Strength at 5/5 X4 ext Psych/Mental Status: Mental status NL, Mood NL laboratory and microbiology Laboratory Tests 01/13/25 05:40 Test 01/13/25 05:40 Range/Units Serum Glucose 80 74-106 mg/dL Labs and/or images reviewed: Labs reviewed by me, Image(s) reviewed by me Problem List/Assessment/Plan Problem List/Assessment/Plan ESRD on hemodialysis Type 2 DM HTN HLD Hyperphosphatemia Vitamin-D deficiency Plan/recommendations Scheduled hemodialysis tomorrow Start p.o. amiodarone 10 mg Several minute mg p.o. t.i.d. Blood pressure control Urine studies Monitor lab Check hep B surface antigen Assess fluid status daily Avoid nephrotoxic agents DC calcitriol Social service for outpatient hemodialysis chair time at [facility] dialysis Rest of management as per primary team Case discussed with Plan discussed with: Patient SWETAZACHARY RESIDENT Jan 14, 2025 13:31 HERRERA DAVEY MD Jan 14, 2025 14:06
[2025-01-14 13:58] LABS: COVID19 ANTIGEN SOFIA FIA NEGATIVE (NEGATIVE)
[2025-01-15 01:00] VITALS: BP 169/92; PULSE 85; RESP 16; TEMP 97.4; O2SAT 100
[2025-01-15 05:00] VITALS: BP 130/80; PULSE 84; RESP 18; TEMP 97.6; O2SAT 99
[2025-01-15] MEDS ORDERED: SODIUM CHL 0.9% 1000 ML BAG XX ONE (07:00)
--- NOTE | 2025-01-15 08:11 | DVHPN2 ---
Reviewed: Care Plan Changes from previous H/P or p: No Changes Eyes: No Pain, No Vision change, No Conjunctivae inflammation, No Eyelid inflammation, No Other, No Redness ENT: No Ear pain, No Ear discharge, No Nose pain, No Nose discharge, No Nose congestion, No Mouth pain, No Mouth swelling, No Throat pain, No Throat swelling, No Other Cardiovascular: No Chest Pain, No Palpitations, No Orthopnea, No Paroxysmal Noc. Dyspnea, No Edema, No Lt Headedness, No Other Respiratory: No Cough, No Dry, No Shortness of breath, No SOB with excertion, No Wheezing, No Hemoptysis, No Pleuritic Pain, No Sputum, No Other Gastrointestinal: No Nausea, No Vomiting, No Abdominal Pain, No Diarrhea, No Constipation, No Melena, No Hematochezia, No Other Genitourinary: No Dysuria, No Frequency, No Incontinence, No Hematuria, No Retention, No Other Musculoskeletal: No other, No neck pain, No shoulder pain, No arm pain, No back pain, No hand pain, No leg pain, No foot pain Skin: No Rash, No Lesions, No Jaundice, No Bruising, No Other Objective Vitals Vital Signs Date Time Temp Pulse Resp B/P (MAP) Pulse Ox O2 Delivery O2 Flow Rate FiO2 01/15/25 05:00 97.6 84 18 130/80 (97) 99 97.6 01/14/25 20:00 Room Air* 0 21 Intake/Output Intake and Output 01/15/25 07:00 Intake Total 1098 ml Balance 1098 ml Intake Oral 1098 ml # Voids 7 # Bowel Movements 1 Medications Current Medications Medications Dose Ordered Sig/Charley Route Start Time Stop Time Status Last Admin Dose Admin Sodium Chloride 10 ml Q8HR IV 01/12/25 22:00 01/14/25 22:00 10 ML Acetaminophen/ Hydrocodone Bitart 1 tab Q4HP PRN PO 01/12/25 16:15 Ondansetron HCl 4 mg Q4HP PRN IV 01/12/25 16:15 Docusate Sodium 100 mg BIDPRN PRN PO 01/12/25 16:15 Acetaminophen 650 mg Q6HP PRN PO 01/12/25 16:15 Allopurinol 100 mg DAILY PO 01/13/25 10:00 01/14/25 09:14 100 MG Ferrous Sulfate 325 mg BID PO 01/12/25 22:00 01/14/25 22:14 325 MG Furosemide 40 mg DAILY PO 01/13/25 10:00 Atorvastatin Calcium 10 mg HS PO 01/13/25 22:00 01/14/25 22:13 10 MG Sevelamer HCl 800 mg TIDWM PO 01/14/25 12:00 01/14/25 18:00 800 MG Hydralazine HCl 10 mg Q4HR PRN IV 01/14/25 09:45 Laboratory Results Laboratory Tests 01/13/25 05:40 HgA1c, TSH Test 01/14/25 09:19 Hemoglobin A1c 5.6 % A1C (<5.7) Urinalysis Test 01/12/25 20:26 01/12/25 20:32 Urine Osmolality 350 mOsm/kg Urine Creatinine 52.81 mg/dL (30.0-125.0) Urine Protein/Creatinine Ratio 3.13 Urine Sodium 76 mmol/L (40-220) Urine Total Protein 165.3 mg/dL (1-14) H Urine Color Light-yellow (Yellow) Urine Clarity Clear (Clear) Urine pH 6.5 (5.0-9.0) Urine Specific [place] 1.012 (1.001-1.035) Urine Protein 2+ (Negative) H Urine Ketones Negative (Negative) Urine Blood 2+ /uL (Negative) H Urine Nitrite Negative (Negative) Urine Bilirubin Negative (Negative) Urine Urobilinogen Normal mg/dL (Negative) Urine Leukocyte Esterase Negative /uL (Negative) Urine RBC 6 /hpf (0 - 3) Urine Microscopic WBC 2 /HPF (0-3) Urine Squamous Epithelial Cells None seen /hpf (<5) Urine Bacteria None seen /hpf (None Seen) Urine Glucose 3+ mg/dL (Normal) H Labs and/or images reviewed: Labs reviewed by me, Image(s) reviewed by me Assessment/Plan Assessment/Plan ESRD on hemodialysis requiring hemodialysis: Nephrology consult by appreciated, patient getting regular dialysis in the hospital Diabetes ruled out, blood sugars normal HTN HLD Hyperphosphatemia Vitamin-D deficiency Milton Batista at bedside Patient arrived [place] from [facility] on 01-12-25 Social service working on outpatient chair time with the patient's insurance Plan discussed with: Patient Date of Service: Jan 15, 2025 Billing Provider: ABDI NELSON MD Common Visit Codes: [id number] INP/OBS CARE(HIGH) ABDI NELSON MD Jan 15, 2025 08:11
[2025-01-15 09:00] VITALS: BP 112/56; PULSE 77; RESP 16; TEMP 98.6; O2SAT 100
[2025-01-15 10:00] VITALS: PULSE 18; RESP 20; O2SAT 96
[2025-01-15] MEDS: LOSARTAN POTASSIUM 25 MG TAB PO SCH (10:00)
--- NOTE | 2025-01-15 10:02 | DVHPN2 ---
Progress Note Date Seen: Jan 15, 2025 Medical Necessity Reason Pt with a Central, PICC or Fol: No Subjective Patient reports: Feels better Objective vital signs Vital Sign Date Time Temp Pulse Resp B/P (MAP) Pulse Ox O2 Delivery O2 Flow Rate FiO2 01/15/25 08:00 Room Air* 0 21 01/15/25 05:00 97.6 84 18 130/80 (97) 99 97.6 Total Intake and Output 01/14/25 01/14/25 01/15/25 15:00 23:00 07:00 Intake Total 978 ml 120 ml Balance 978 ml 120 ml medications Current Medications Medications Dose Ordered Sig/Charley Route Start Time Stop Time Status Last Admin Dose Admin Sodium Chloride 10 ml Q8HR IV 01/12/25 22:00 01/14/25 22:00 10 ML Acetaminophen/ Hydrocodone Bitart 1 tab Q4HP PRN PO 01/12/25 16:15 Ondansetron HCl 4 mg Q4HP PRN IV 01/12/25 16:15 Docusate Sodium 100 mg BIDPRN PRN PO 01/12/25 16:15 Acetaminophen 650 mg Q6HP PRN PO 01/12/25 16:15 Allopurinol 100 mg DAILY PO 01/13/25 10:00 01/15/25 09:36 100 MG Ferrous Sulfate 325 mg BID PO 01/12/25 22:00 01/15/25 09:36 325 MG Furosemide 40 mg DAILY PO 01/13/25 10:00 Atorvastatin Calcium 10 mg HS PO 01/13/25 22:00 01/14/25 22:13 10 MG Sevelamer HCl 800 mg TIDWM PO 01/14/25 12:00 01/15/25 08:00 800 MG Hydralazine HCl 10 mg Q4HR PRN IV 01/14/25 09:45 Examination: GENERAL:Normal, CVS:Normal, SKIN:Normal laboratory and microbiology Laboratory Tests 01/13/25 05:40 Test 01/13/25 05:40 Range/Units Serum Glucose 80 74-106 mg/dL Problem List/Assessment/Plan Problem List/Assessment/Plan End-stage renal disease on hemodialysis Migrated from [facility] Hypertension Hyperphosphatemia HD via AVF losartan for BP HD today labs to be drawn today and tomorrow phos binder Cm and outpatient coordinator to determine insurance and dialysis unit placement Plan discussed with: Patient My Orders My Orders Orders - DELFIN CERVANTES MD Procedure Category Date Status Time Basic Metabolic Panel LAB 01/15/25 Verified 09:53 Basic Metabolic Panel LAB 01/16/25 Verified 04:00 Phosphorus LAB 01/16/25 Verified 04:00 DELFIN CERVANTES MD Jan 15, 2025 10:02
[2025-01-15 11:17] LABS: Hematocrit 45.6 % (41.0-53.0); Hemoglobin 15.2 g/dL (13.5-17.5); Mean Corpuscular Hemoglobin 31.1 pg (28.0-32.0); Mean Corpuscular Volume 92.9 fL (80.0-100.0); Nucleated Red Blood Cells % 0.2 %
[2025-01-15 11:36] LABS: Alanine Aminotransferase 14 U/L (7-40); Albumin 4.3 g/dL (3.2-4.8); Alkaline Phosphatase 113 U/L (46-116); Anion Gap 12 (5-15); BUN/Creatinine Ratio 5.9 (10.0-20.0); Calcium 9.5 mg/dL (8.7-10.4); Carbon Dioxide 29 mmol/L (20-31); Chloride 99 mmol/L (98-107); Glucose 77 mg/dL (74-106); Potassium 3.6 mmol/L (3.5-5.1); Sodium 140 mmol/L (136-145); Total Protein 7.5 g/dL (5.7-8.2)
[2025-01-15 11:37] LABS: Bilirubin, Total 0.5 mg/dL (0.2-1.0); Blood Urea Nitrogen 28 mg/dL (9-23)
[2025-01-15 12:54] VITALS: BP 112/71; PULSE 19; RESP 19; TEMP 98.3; O2SAT 91
[2025-01-15 21:00] VITALS: BP 143/77; PULSE 85; RESP 17; TEMP 98; O2SAT 99
[2025-01-16] VITALS (7 sets, daily range): BP systolic 97–125; BP diastolic 58–76; PULSE 83–90; RESP 16–19; TEMP 96.8–98.2; O2SAT 97–100
--- NOTE | 2025-01-16 09:26 | DVHPN2 ---
Reviewed: Care Plan Changes from previous H/P or p: No Changes Eyes: No Pain, No Vision change, No Conjunctivae inflammation, No Eyelid inflammation, No Other, No Redness ENT: No Ear pain, No Ear discharge, No Nose pain, No Nose discharge, No Nose congestion, No Mouth pain, No Mouth swelling, No Throat pain, No Throat swelling, No Other Cardiovascular: No Chest Pain, No Palpitations, No Orthopnea, No Paroxysmal Noc. Dyspnea, No Edema, No Lt Headedness, No Other Respiratory: No Cough, No Dry, No Shortness of breath, No SOB with excertion, No Wheezing, No Hemoptysis, No Pleuritic Pain, No Sputum, No Other Gastrointestinal: No Nausea, No Vomiting, No Abdominal Pain, No Diarrhea, No Constipation, No Melena, No Hematochezia, No Other Genitourinary: No Dysuria, No Frequency, No Incontinence, No Hematuria, No Retention, No Other Musculoskeletal: No other, No neck pain, No shoulder pain, No arm pain, No back pain, No hand pain, No leg pain, No foot pain Skin: No Rash, No Lesions, No Jaundice, No Bruising, No Other Objective Vitals Vital Signs Date Time Temp Pulse Resp B/P (MAP) Pulse Ox O2 Delivery O2 Flow Rate FiO2 01/16/25 09:00 96.8 87 18 97/58 (71) 98 96.8 01/16/25 07:30 Room Air* 0 21 Intake/Output Intake and Output 01/16/25 07:00 Intake Total 90 ml Output Total 600 ml Balance -510 ml Intake Oral 90 ml Output Urine Total 600 ml Medications Current Medications Medications Dose Ordered Sig/Charley Route Start Time Stop Time Status Last Admin Dose Admin Sodium Chloride 10 ml Q8HR IV 01/12/25 22:00 01/16/25 05:31 10 ML Acetaminophen/ Hydrocodone Bitart 1 tab Q4HP PRN PO 01/12/25 16:15 Ondansetron HCl 4 mg Q4HP PRN IV 01/12/25 16:15 Docusate Sodium 100 mg BIDPRN PRN PO 01/12/25 16:15 Acetaminophen 650 mg Q6HP PRN PO 01/12/25 16:15 Allopurinol 100 mg DAILY PO 01/13/25 10:00 01/16/25 08:44 100 MG Ferrous Sulfate 325 mg BID PO 01/12/25 22:00 01/16/25 08:44 325 MG Furosemide 40 mg DAILY PO 01/13/25 10:00 Atorvastatin Calcium 10 mg HS PO 01/13/25 22:00 01/15/25 21:22 10 MG Sevelamer HCl 800 mg TIDWM PO 01/14/25 12:00 01/16/25 08:44 800 MG Hydralazine HCl 10 mg Q4HR PRN IV 01/14/25 09:45 Losartan Potassium 25 mg DAILY PO 01/15/25 10:00 Laboratory Results Laboratory Tests 01/15/25 10:48 Chemistry Test 01/15/25 10:48 Albumin 4.3 g/dL (3.2-4.8) Calcium Level 9.5 mg/dL (8.7-10.4) Total Protein 7.5 g/dL (5.7-8.2) LFT Test 01/15/25 10:48 Alanine Aminotransferase (ALT) 14 U/L (7-40) Alkaline Phosphatase 113 U/L (46-116) Aspartate Amino Transferase (AST) 43 U/L (13-40) H Total Bilirubin 0.5 mg/dL (0.2-1.0) Urinalysis Test 01/12/25 20:26 01/12/25 20:32 Urine Osmolality 350 mOsm/kg Urine Creatinine 52.81 mg/dL (30.0-125.0) Urine Protein/Creatinine Ratio 3.13 Urine Sodium 76 mmol/L (40-220) Urine Total Protein 165.3 mg/dL (1-14) H Urine Color Light-yellow (Yellow) Urine Clarity Clear (Clear) Urine pH 6.5 (5.0-9.0) Urine Specific [place] 1.012 (1.001-1.035) Urine Protein 2+ (Negative) H Urine Ketones Negative (Negative) Urine Blood 2+ /uL (Negative) H Urine Nitrite Negative (Negative) Urine Bilirubin Negative (Negative) Urine Urobilinogen Normal mg/dL (Negative) Urine Leukocyte Esterase Negative /uL (Negative) Urine RBC 6 /hpf (0 - 3) Urine Microscopic WBC 2 /HPF (0-3) Urine Squamous Epithelial Cells None seen /hpf (<5) Urine Bacteria None seen /hpf (None Seen) Urine Glucose 3+ mg/dL (Normal) H Labs and/or images reviewed: Labs reviewed by me, Image(s) reviewed by me Assessment/Plan Assessment/Plan ESRD on hemodialysis requiring hemodialysis: Nephrology consult by appreciated, patient getting regular dialysis in the hospital Diabetes ruled out, blood sugars normal HTN HLD Hyperphosphatemia Vitamin-D deficiency Milton Batista at bedside Patient arrived in [place] from [facility] on 01-12-25 Social service working on outpatient chair time with the patient's insurance Spoke with the patient's on the phone and advised her that we are waiting for outpatient chair time Plan discussed with: Patient My Orders Orders - ABDI NELSON MD Procedure Category Date Status Time Complete Blood Count LAB 01/16/25 Logged 09:58 Complete Blood Count LAB 01/17/25 Verified 09:58 Comprehensive LAB 01/16/25 Logged Metabolic Panel 09:58 Comprehensive LAB 01/17/25 Verified Metabolic Panel 09:58 Phosphorus LAB 01/16/25 Logged 09:58 Date of Service: Jan 16, 2025 Billing Provider: ABDI NELSON MD Common Visit Codes: [id number] INP/OBS CARE(HIGH) ABDI NELSON MD Jan 16, 2025 09:26
[2025-01-16 10:15] LABS: Hematocrit 41.4 % (41.0-53.0); Hemoglobin 14.0 g/dL (13.5-17.5); Mean Corpuscular Hemoglobin 31.4 pg (28.0-32.0); Mean Corpuscular Volume 92.9 fL (80.0-100.0); Nucleated Red Blood Cells % 0.0 %
[2025-01-16 10:30] LABS: Alanine Aminotransferase 20 U/L (7-40); Albumin 4.1 g/dL (3.2-4.8); Alkaline Phosphatase 105 U/L (46-116); Anion Gap 13 (5-15); BUN/Creatinine Ratio 6.4 (10.0-20.0); Bilirubin, Total 0.4 mg/dL (0.2-1.0); Calcium 9.2 mg/dL (8.7-10.4); Carbon Dioxide 29 mmol/L (20-31); Potassium 3.6 mmol/L (3.5-5.1); Sodium 138 mmol/L (136-145); Total Protein 7.2 g/dL (5.7-8.2)
[2025-01-16 10:32] LABS: Blood Urea Nitrogen 46 mg/dL (9-23); Chloride 96 mmol/L (98-107); Glucose 139 mg/dL (74-106)
--- NOTE | 2025-01-16 15:17 | DVHPN2 ---
Progress Note Date Seen: Jan 16, 2025 Medical Necessity Reason Pt with a Central, PICC or Fol: No Subjective Patient reports: Feels better Objective vital signs Vital Sign Date Time Temp Pulse Resp B/P (MAP) Pulse Ox O2 Delivery O2 Flow Rate FiO2 01/16/25 13:00 98.1 83 17 110/63 (79) 98 98.1 01/16/25 07:30 Room Air* 0 21 Total Intake and Output 01/15/25 01/15/25 01/16/25 15:00 23:00 07:00 Intake Total 40 ml 50 ml Output Total 600 ml 0 ml Balance -560 ml 50 ml medications Current Medications Medications Dose Ordered Sig/Charley Route Start Time Stop Time Status Last Admin Dose Admin Sodium Chloride 10 ml Q8HR IV 01/12/25 22:00 01/16/25 13:28 10 ML Acetaminophen/ Hydrocodone Bitart 1 tab Q4HP PRN PO 01/12/25 16:15 Ondansetron HCl 4 mg Q4HP PRN IV 01/12/25 16:15 Docusate Sodium 100 mg BIDPRN PRN PO 01/12/25 16:15 Acetaminophen 650 mg Q6HP PRN PO 01/12/25 16:15 Allopurinol 100 mg DAILY PO 01/13/25 10:00 01/16/25 08:44 100 MG Ferrous Sulfate 325 mg BID PO 01/12/25 22:00 01/16/25 08:44 325 MG Furosemide 40 mg DAILY PO 01/13/25 10:00 Atorvastatin Calcium 10 mg HS PO 01/13/25 22:00 01/15/25 21:22 10 MG Sevelamer HCl 800 mg TIDWM PO 01/14/25 12:00 01/16/25 13:27 800 MG Hydralazine HCl 10 mg Q4HR PRN IV 01/14/25 09:45 Losartan Potassium 25 mg DAILY PO 01/15/25 10:00 Examination: GENERAL:Normal, CVS:Normal, ABDOMEN:Normal, SKIN:Normal laboratory and microbiology Laboratory Tests 01/16/25 09:54 Test 01/16/25 09:54 Range/Units Serum Glucose 139 H 74-106 mg/dL Microbiology Date/Time Source Procedure Growth Status 01/16/25 02:42 Nose MRSA Screen - Final Complete Problem List/Assessment/Plan Problem List/Assessment/Plan End-stage renal disease on hemodialysis Migrated from [facility] Hypertension Hyperphosphatemia HD via AVF losartan for BP phos binder accepted to dialysis unit next Hd outpatient Plan discussed with: Patient DELFIN CERVANTES MD Jan 16, 2025 15:17
[2025-01-17 01:00] VITALS: BP 120/70; PULSE 82; RESP 18; TEMP 98.4; O2SAT 97
[2025-01-17 05:00] VITALS: BP 121/71; PULSE 95; RESP 18; TEMP 98.7; O2SAT 97
[2025-01-17 07:30] VITALS: PULSE 88; RESP 18; O2SAT 97
[2025-01-17 08:30] VITALS: BP 117/72; PULSE 84; RESP 17; TEMP 98.8; O2SAT 97
[2025-01-17] MEDS ORDERED: ALL100T PO (09:21)
[2025-01-17] MEDS ORDERED: LOSA50TA12 PO (09:21)
[2025-01-17] MEDS ORDERED: SEVE800T7 PO (09:21)
[2025-01-17] MEDS ORDERED: ATOR20TA PO (09:21)
[2025-01-17] MEDS ORDERED: FERR-7 PO (09:21)
--- NOTE | 2025-01-17 09:23 | DVHPN2 ---
Reviewed: Care Plan Changes from previous H/P or p: No Changes Eyes: No Pain, No Vision change, No Conjunctivae inflammation, No Eyelid inflammation, No Other, No Redness ENT: No Ear pain, No Ear discharge, No Nose pain, No Nose discharge, No Nose congestion, No Mouth pain, No Mouth swelling, No Throat pain, No Throat swelling, No Other Cardiovascular: No Chest Pain, No Palpitations, No Orthopnea, No Paroxysmal Noc. Dyspnea, No Edema, No Lt Headedness, No Other Respiratory: No Cough, No Dry, No Shortness of breath, No SOB with excertion, No Wheezing, No Hemoptysis, No Pleuritic Pain, No Sputum, No Other Gastrointestinal: No Nausea, No Vomiting, No Abdominal Pain, No Diarrhea, No Constipation, No Melena, No Hematochezia, No Other Genitourinary: No Dysuria, No Frequency, No Incontinence, No Hematuria, No Retention, No Other Musculoskeletal: No other, No neck pain, No shoulder pain, No arm pain, No back pain, No hand pain, No leg pain, No foot pain Skin: No Rash, No Lesions, No Jaundice, No Bruising, No Other Objective Vitals Vital Signs Date Time Temp Pulse Resp B/P (MAP) Pulse Ox O2 Delivery O2 Flow Rate FiO2 01/17/25 07:30 88 18 97 Room Air* 0 21 01/17/25 05:00 98.7 121/71 (88) 98.7 Intake/Output Intake and Output 01/17/25 07:00 Intake Total 800 ml Output Total 850 ml Balance -50 ml Intake Oral 800 ml Output Urine Total 850 ml Medications Current Medications Medications Dose Ordered Sig/Charley Route Start Time Stop Time Status Last Admin Dose Admin Sodium Chloride 10 ml Q8HR IV 01/12/25 22:00 01/17/25 05:08 10 ML Acetaminophen/ Hydrocodone Bitart 1 tab Q4HP PRN PO 01/12/25 16:15 Ondansetron HCl 4 mg Q4HP PRN IV 01/12/25 16:15 Docusate Sodium 100 mg BIDPRN PRN PO 01/12/25 16:15 Acetaminophen 650 mg Q6HP PRN PO 01/12/25 16:15 Allopurinol 100 mg DAILY PO 01/13/25 10:00 01/16/25 08:44 100 MG Ferrous Sulfate 325 mg BID PO 01/12/25 22:00 01/16/25 21:14 325 MG Furosemide 40 mg DAILY PO 01/13/25 10:00 Atorvastatin Calcium 10 mg HS PO 01/13/25 22:00 01/16/25 21:13 10 MG Sevelamer HCl 800 mg TIDWM PO 01/14/25 12:00 01/16/25 17:17 800 MG Hydralazine HCl 10 mg Q4HR PRN IV 01/14/25 09:45 Losartan Potassium 25 mg DAILY PO 01/15/25 10:00 Laboratory Results Laboratory Tests 01/16/25 09:54 Chemistry Test 01/16/25 09:54 Albumin 4.1 g/dL (3.2-4.8) Calcium Level 9.2 mg/dL (8.7-10.4) Phosphorus Level 4.9 mg/dL (2.4-5.1) Total Protein 7.2 g/dL (5.7-8.2) LFT Test 01/16/25 09:54 Alanine Aminotransferase (ALT) 20 U/L (7-40) Alkaline Phosphatase 105 U/L (46-116) Aspartate Amino Transferase (AST) 42 U/L (13-40) H Total Bilirubin 0.4 mg/dL (0.2-1.0) Urinalysis Test 01/12/25 20:26 01/12/25 20:32 Urine Osmolality 350 mOsm/kg Urine Creatinine 52.81 mg/dL (30.0-125.0) Urine Protein/Creatinine Ratio 3.13 Urine Sodium 76 mmol/L (40-220) Urine Total Protein 165.3 mg/dL (1-14) H Urine Color Light-yellow (Yellow) Urine Clarity Clear (Clear) Urine pH 6.5 (5.0-9.0) Urine Specific [place] 1.012 (1.001-1.035) Urine Protein 2+ (Negative) H Urine Ketones Negative (Negative) Urine Blood 2+ /uL (Negative) H Urine Nitrite Negative (Negative) Urine Bilirubin Negative (Negative) Urine Urobilinogen Normal mg/dL (Negative) Urine Leukocyte Esterase Negative /uL (Negative) Urine RBC 6 /hpf (0 - 3) Urine Microscopic WBC 2 /HPF (0-3) Urine Squamous Epithelial Cells None seen /hpf (<5) Urine Bacteria None seen /hpf (None Seen) Urine Glucose 3+ mg/dL (Normal) H Microbiology Microbiology Date/Time Source Procedure Growth Status 01/16/25 02:42 Nose MRSA Screen - Final Complete Labs and/or images reviewed: Labs reviewed by me, Image(s) reviewed by me Assessment/Plan Assessment/Plan ESRD on hemodialysis : Nephrology consult by appreciated, patient getting regular dialysis in the hospital, last dialysis on 01/17/2025 Diabetes ruled out, blood sugars normal HTN HLD Hyperphosphatemia Vitamin-D deficiency Milton Li at bedside Patient arrived in [place] from [facility] on 01-12-25 Outpatient chart time arranged with the [facility] dialysis 5:45 a.m. Sunday patient was informed and being discharged Plan discussed with: Patient Date of Service: Jan 17, 2025 Billing Provider: ABDI NELSON MD Common Visit Codes: [id number] INP/OBS CARE(HIGH) ABDI NELSON MD Jan 17, 2025 09:23
--- NOTE | 2025-01-17 09:26 | DVHDS2 ---
Discharge Summary Date of Admission Jan 12, 2025 at 16:12 Date of Discharge: Jan 17, 2025 Admitting Diagnosis Need for dialysis Wounds: None Labs/Diagnostic Data: Laboratory Results Test 01/16/25 09:54 01/14/25 12:00 01/14/25 09:19 01/14/25 06:20 White Blood Count 5.8 10^3/uL (4.4-10.8) Red Blood Count 4.45 10^6/uL (4.5-5.90) Hemoglobin 14.0 g/dL (13.5-17.5) Hematocrit 41.4 % (41.0-53.0) Mean Corpuscular Volume 92.9 fL (80.0-100.0) Mean Corpuscular Hemoglobin 31.4 pg (28.0-32.0) Mean Corpuscular Hemoglobin Concent 33.8 g/dL (32.0-36.0) Red Cell Distribution Width 14.3 % (11.8-14.3) Platelet Count 233 10^3/uL (140-450) Mean Platelet Volume 7.8 fL (6.9-10.8) Neutrophils (%) (Auto) 63.3 % (37.0-80.0) Lymphocytes (%) (Auto) 23.7 % (10.0-50.0) Monocytes (%) (Auto) 9.3 % (0.0-12.0) Eosinophils (%) (Auto) 3.0 % (0.0-7.0) Basophils (%) (Auto) 0.7 % (0.0-2.0) Neutrophils # (Auto) 3.7 10 ^3/uL (1.6-8.6) Lymphocytes # (Auto) 1.4 10 ^3/uL (0.4-5.4) Monocytes # (Auto) 0.5 10 ^3/uL (0-1.3) Eosinophils # (Auto) 0.2 10 ^3/uL (0-0.8) Basophils # (Auto) 0 10 ^3/uL (0-0.2) Nucleated Red Blood Cells 0.0 % Sodium Level 138 mmol/L (136-145) Potassium Level 3.6 mmol/L (3.5-5.1) Chloride Level 96 mmol/L (98-107) Carbon Dioxide Level 29 mmol/L (20-31) Anion Gap 13 (5-15) Blood Urea Nitrogen 46 mg/dL (9-23) Creatinine 7.21 mg/dL (0.700-1.30) Glomerular Filtration Rate Calc 8 mL/min (>90) BUN/Creatinine Ratio 6.4 (10.0-20.0) Serum Glucose 139 mg/dL (74-106) Calcium Level 9.2 mg/dL (8.7-10.4) Phosphorus Level 4.9 mg/dL (2.4-5.1) Total Bilirubin 0.4 mg/dL (0.2-1.0) Aspartate Amino Transferase (AST) 42 U/L (13-40) Alanine Aminotransferase (ALT) 20 U/L (7-40) Alkaline Phosphatase 105 U/L (46-116) Total Protein 7.2 g/dL (5.7-8.2) Albumin 4.1 g/dL (3.2-4.8) SARS-CoV-2 Antigen (Rapid) Negative (NEGATIVE) Hemoglobin A1c 5.6 % A1C (<5.7) POC Glucose 96 mg/dl (70-106) Test 01/13/25 05:40 01/12/25 20:32 01/12/25 20:26 Uric Acid 6.9 mg/dL (3.7-9.2) B-Type Natriuretic Peptide 434.99 pg/mL (0-100) Vitamin D 25-Hydroxy 29.3 ng/mL (30.0-100) Parathyroid Hormone (Intact) 64.6 pg/mL (18.4-80.1) Hepatitis B Surface Antigen Negative (Negative) Hepatitis C Antibody Negative (Negative) Urine Color Light-yellow (Yellow) Urine Clarity Clear (Clear) Urine pH 6.5 (5.0-9.0) Urine Specific [place] 1.012 (1.001-1.035) Urine Protein 2+ (Negative) Urine Ketones Negative (Negative) Urine Blood 2+ /uL (Negative) Urine Nitrite Negative (Negative) Urine Bilirubin Negative (Negative) Urine Urobilinogen Normal mg/dL (Negative) Urine Leukocyte Esterase Negative /uL (Negative) Urine RBC 6 /hpf (0 - 3) Urine Microscopic WBC 2 /HPF (0-3) Urine Squamous Epithelial Cells None seen /hpf (<5) Urine Bacteria None seen /hpf (None Seen) Urine Glucose 3+ mg/dL (Normal) Urine Osmolality 350 mOsm/kg Urine Creatinine 52.81 mg/dL (30.0-125.0) Urine Protein/Creatinine Ratio 3.13 Urine Sodium 76 mmol/L (40-220) Urine Total Protein 165.3 mg/dL (1-14) Other Laboratory Tests 01/16/25 09:54 Brief Hx & Hospital Course: 64-year-old male with a hypertension hypercholesterolemia vitamin-D deficiency recently started on dialysis in [place] and came to [facility] and came to this hospital admitted for dialysis seen by head tennis coach Dr Lakhani and received hemodialysis while in the hospital. Outpatient chart time arranged and patient being discharged. Medications transmitted to the [facility] pharmacy Consults/Reason for consult Nephrology Operations or Procedures Hemodialysis Condition at Discharge: Fair Final Diagnosis/Problems List ESRD on hemodialysis : Nephrology consult by appreciated, patient getting regular dialysis in the hospital, last dialysis on 01/17/2025 Diabetes ruled out, blood sugars normal HTN HLD Hyperphosphatemia Vitamin-D deficiency Discharge Disposition: Home Discharge Instruct/Medications Diet: Renal Activity: Light activity Follow Up/Referral: Follow up with [facility] dialysis for dialysis Sunday at 5:45 a.m. Use medications as prescribed Medications: Renagel Iron sulfate Allopurinol Cozaar Transmitted to [facility] pharmacy Scheduled Allopurinol (Allopurinol), 100 MG PO DAILY, (Reported) Allopurinol (Zyloprim Tablet), 1 TAB PO DAILY Atorvastatin Calcium (Lipitor), 1 TAB PO DAILY Calcitriol (Calcitriol), 1 CAP PO DAILY, (Reported) Calcium Acetate (Phosphate Bin (Calcium Acetate), 667 MG PO TIDWM, (Reported) Enalapril Maleate (Enalapril Maleate), DAILY, (Reported) Ferrous Sulfate (Ferrous Sulfate), 325 MG PO BID, (Reported) Ferrous Sulfate (Iron), 325 MG PO BID Furosemide (Furosemide), 1 TAB PO DAILY, (Reported) Losartan Potassium (Cozaar), 50 MG PO DAILY Metformin Hydrochloride (Metformin Hcl), BID, (Reported) Rosuvastatin Calcium (Rosuvastatin Calcium), 5 MG PO DAILY, (Reported) Sevelamer Hydrochloride (Renagel), 800 MG PO TID 39 (Time taken for discharge summary 39 minuteS) Discharge Statement: "Patient was advised to return to the ER or call 911 if any headaches, dizziness, shortness of breath, chest pain, abdominal pain, bleeding, fevers, or worsening of medical condition. Patient was counseled about treatment plan, medications, possible side effects, patientverbalized understanding. All questions were answered to the best of my ability. This discharge took greater then 30 minutes in planning, reviewing documentation, counseling the patient, and discussing with other team members." ASSESSMENT ASSESSMENT Hospital Course Improved Assessment ESRD on hemodialysis : Nephrology consult by appreciated, patient getting regular dialysis in the hospital, last dialysis on 01/17/2025 Diabetes ruled out, blood sugars normal HTN HLD Hyperphosphatemia Vitamin-D deficiency Date of Service: Jan 17, 2025 Billing Provider: ABDI NELSON MD Common Visit Codes: [id number] DISCH DAY >30min ABDI NELSON MD Jan 17, 2025 09:26
--- NOTE | 2025-01-17 10:28 | DVHPN2 ---
Progress Note Date Seen: Jan 17, 2025 Medical Necessity Reason Pt with a Central, PICC or Fol: No Subjective Changes from previous H/P or p: No Changes Objective vital signs Vital Sign Date Time Temp Pulse Resp B/P (MAP) Pulse Ox O2 Delivery O2 Flow Rate FiO2 01/17/25 08:30 98.8 84 17 117/72 (87) 97 98.8 01/17/25 07:30 Room Air* 0 21 Total Intake and Output 01/16/25 01/16/25 01/17/25 15:00 23:00 07:00 Intake Total 500 ml 300 ml Output Total 750 ml 100 ml Balance -250 ml 200 ml medications Current Medications Medications Dose Ordered Sig/Charley Route Start Time Stop Time Status Last Admin Dose Admin Sodium Chloride 10 ml Q8HR IV 01/12/25 22:00 01/17/25 05:08 10 ML Acetaminophen/ Hydrocodone Bitart 1 tab Q4HP PRN PO 01/12/25 16:15 Ondansetron HCl 4 mg Q4HP PRN IV 01/12/25 16:15 Docusate Sodium 100 mg BIDPRN PRN PO 01/12/25 16:15 Acetaminophen 650 mg Q6HP PRN PO 01/12/25 16:15 Allopurinol 100 mg DAILY PO 01/13/25 10:00 01/16/25 08:44 100 MG Ferrous Sulfate 325 mg BID PO 01/12/25 22:00 01/16/25 21:14 325 MG Furosemide 40 mg DAILY PO 01/13/25 10:00 Atorvastatin Calcium 10 mg HS PO 01/13/25 22:00 01/16/25 21:13 10 MG Sevelamer HCl 800 mg TIDWM PO 01/14/25 12:00 01/16/25 17:17 800 MG Hydralazine HCl 10 mg Q4HR PRN IV 01/14/25 09:45 Losartan Potassium 25 mg DAILY PO 01/15/25 10:00 Examination: GENERAL:Normal, CVS:Normal, SKIN:Normal laboratory and microbiology Laboratory Tests 01/16/25 09:54 Test 01/16/25 09:54 Range/Units Serum Glucose 139 H 74-106 mg/dL Microbiology Date/Time Source Procedure Growth Status 01/16/25 02:42 Nose MRSA Screen - Final Complete Problem List/Assessment/Plan Problem List/Assessment/Plan End-stage renal disease on hemodialysis Migrated from [facility] Hypertension Hyperphosphatemia HD via AVF HD today losartan for BP phos binder accepted to dialysis unit to start dialysis on sunday Plan discussed with: Patient My Orders My Orders Orders - DELFIN CERVANTES MD Procedure Category Date Status Time Hemodialysis Orders ORDERS 01/17/25 Transmitted 07:30 DELFIN CERVANTES MD Jan 17, 2025 10:28
[2025-01-17 10:41] VITALS: BP 121/71; PULSE 83; RESP 18; TEMP 98.7; O2SAT 97
[2025-01-17 11:33] LABS: Hematocrit 40.2 % (41.0-53.0); Hemoglobin 13.7 g/dL (13.5-17.5); Mean Corpuscular Hemoglobin 31.4 pg (28.0-32.0); Mean Corpuscular Volume 91.9 fL (80.0-100.0); Nucleated Red Blood Cells % 0.0 %
[2025-01-17 11:52] LABS: Alanine Aminotransferase 18 U/L (7-40); Albumin 3.9 g/dL (3.2-4.8); Alkaline Phosphatase 93 U/L (46-116); Anion Gap 9 (5-15); BUN/Creatinine Ratio 5.8 (10.0-20.0); Bilirubin, Total 0.5 mg/dL (0.2-1.0); Blood Urea Nitrogen 23 mg/dL (9-23); Chloride 101 mmol/L (98-107); Glucose 81 mg/dL (74-106); Potassium 3.5 mmol/L (3.5-5.1); Sodium 142 mmol/L (136-145); Total Protein 6.8 g/dL (5.7-8.2)
[2025-01-17 12:01] LABS: Calcium 8.6 mg/dL (8.7-10.4); Carbon Dioxide 32 mmol/L (20-31)
[2025-01-17 12:48] VITALS: BP 147/84; PULSE 89; RESP 15; TEMP 97; O2SAT 96
== END 2025-01-17 17:30 | disposition home or self-care (01) | DRG 682 ==
LOC: ER 12:11 → OVERFLOW 16:12 → CENTRAL 21:54
PROVIDERS: ADMIT Family Medicine; ATTEND Family Medicine
PROC: 5A1D70Z Performance of Urinary Filtration, Intermittent, Less than 6 Hours Per Day (ICD-10-PCS; principal; 2025-01-13)
PROC: 5A1D70Z Performance of Urinary Filtration, Intermittent, Less than 6 Hours Per Day (ICD-10-PCS; 2025-01-15)
PROC: 5A1D70Z Performance of Urinary Filtration, Intermittent, Less than 6 Hours Per Day (ICD-10-PCS; 2025-01-17)
DX: I12.0 Hypertensive chronic kidney disease with stage 5 chronic kidney disease or end stage renal disease (principal); N18.6 End stage renal disease; Z99.2 Dependence on renal dialysis; E78.00 Pure hypercholesterolemia, unspecified; M10.9 Gout, unspecified; Z20.822 Contact with and (suspected) exposure to COVID-19; E55.9 Vitamin D deficiency, unspecified
CPT/HCPCS: 36415; 71045; 80048; 80053; 81001; 82306; 82570; 82962; 83036; 83880; 83935; 83970; 84100; 84156; 84300; 84550; 85025; 86803; 87081; 87340; 87426; 90935; 93306; G0378